=== PATIENT | female | born 1995 | race Caucasian/White ===

== ENCOUNTER 2021-11-16 23:50 | Emergency (ER) | payer MEDICAID, MEDICARE | END 2021-11-17 00:05 | disposition left against medical advice (07) | LOC: ER 23:50 | DX: Z53.21 Procedure and treatment not carried out due to patient leaving prior to being seen by health care provider (principal) ==

== ENCOUNTER 2022-09-09 07:14 | Emergency (ER) | payer MEDICAID, OTHER ==
[~2022-09-09] VITALS: Ht 167.6 cm; Wt 80.0 kg
[2022-09-09 10:30] VITALS: BP 127/91
== END 2022-09-09 11:30 | disposition home or self-care (01) ==
LOC: ER 07:14
DX: Z00.00 Encounter for general adult medical examination without abnormal findings (principal)
CPT/HCPCS: 99283